=== PATIENT | male | born 1965 | race Caucasian/White ===

== ENCOUNTER 2019-04-14 11:20 | Outpatient (CLI) | payer BC ==
--- NOTE | 2019-04-14 11:39 | RAD ---
Cervical spine 3 views: 04/14/2019 COMPARISON: None HISTORY: History of "neck fracture", pain FINDINGS: Partially visualized midline sternotomy wires are present. Metallic foreign bodies overlie the region of the mastoid air cells, location uncertain without frontal imaging. No significant anterolisthesis or retrolisthesis. At C5-6 and C6-7 there is disc space narrowing with degenerative endplate change and anterior osteoph yte formation. No prevertebral soft tissue swelling. Neutral, extension, and flexion imaging demonstrates no anterolisthesis or retrolisthesis. The patien t's history includes "neck fracture". No discrete fracture seen on this examination. Correlation with CT examination is thus advised. IMPRESSION: 3 views of the cervical spine as above.
== END 2019-04-14 11:21 | disposition home or self-care (01) ==
LOC: TBSIIMAG 11:20
PROVIDERS: ATTEND Neurological Surgery
DX: S12.9XXA Fracture of neck, unspecified, initial encounter (principal)
CPT/HCPCS: 72040

== ENCOUNTER 2019-07-16 08:41 | Outpatient (CLI) | payer BC ==
--- NOTE | 2019-07-16 09:19 | CT ---
CT of thecervical spine: 07/16/2019 COMPARISON:None available HISTORY:Cervical spondylosis TECHNIQUE: Serial axial CT imaging at2 mm intervals from theskull base through lung apices without co ntrast. Coronal and sagittal reformatted imaging obtained. Findings:There is degenerative change at the atlantoaxial interspace. The craniocervical junction and the cervicothoracic junction appear intact. Evaluation for central canal and/or neural foraminal stenosis is limited on routine CT. There is a pr ominent area of eccentric hypodensity with associated calcification involving the distal CCA and proximal ICA on the left. CT angiogram of the neck advised for further assessment. C2-3: No osseous cause of significant central canal or neural foraminal stenosis. C3-4: Mild right-sided uncovertebral osteophyte formation. Mild anterior osteophyte. Mild right neura l foraminal stenosis. No osseous cause of significant central canal or left neural foraminal stenosis. C4-5: No osseous cause of significant central canal or neural foraminal stenosis. C5-6: Probable mild disc bulge. Mild bilateral facet hypertrophy with mild right uncovertebral osteop hyte formation. No osseous cause of significant central canal or neural foraminal stenosis. C6-7: There is disc space narrowing and mild degenerative endplate change with mild anterior osteophy te formation. Mild bilateral uncovertebral osteophyte, left greater than right. There is mild left neural foraminal stenosis. No central canal or right neural foraminal stenosis. C7-T1: No osseous cause of significant central canal or neural foraminal stenosis. There is a focal area of irregular groundglass opacity within the right lung apex measuring 1.9 cm in craniocaudal dimension. No evidence for acute fracture or dislocation. Impression: 1. Eccentric hypodensity within the distal CCA and proximal ICA on the left for which CT angiogram of the neck is suggested. 2. Cervical spine degenerative change as detailed above. 3. Focal area of abnormal groundglass opacity within the right lung apex. CT examination of the chest is advised. CODE T
== END 2019-07-16 08:42 | disposition home or self-care (01) ==
LOC: TBSIIMAG 08:41
PROVIDERS: ATTEND Neurological Surgery
DX: M47.812 Spondylosis without myelopathy or radiculopathy, cervical region (principal); R91.8 Other nonspecific abnormal finding of lung field; R93.89 Abnormal findings on diagnostic imaging of other specified body structures
CPT/HCPCS: 72125

== ENCOUNTER 2019-08-14 10:01 | Outpatient (CLI) | payer BC ==
--- NOTE | 2019-08-14 12:10 | RAD ---
XRAY SINUSES WALKER VIEW ONLY: HISTORY: Eye drainage. FINDINGS/IMPRESSION: No radiopaque foreign body is seen in either orbit. POS: [facility]
--- NOTE | 2019-08-14 13:30 | MRI ---
MRI cervical spine noncontrast: DATE: 08/14/2019 HISTORY: 54-year-old male with cervical spondylosis and cervical myelopathy M 47.12 COMPARISON: None TECHNIQUE: This was ordered with and without IV contrast. However, no IV access could be obtained, and therefore the study was performed without contrast. FINDINGS: Vertebral body heights are maintained. Disc spaces are maintained. Multilevel predominantly mild face t DJD bilaterally. Broad-based, and focal, and irregular disc-osteophyte complexes protruding into the spinal canal anteriorly. Mild ligamentum flavum thickening minimally indents the dorsal surface o f the spinal canal. No vane cord compression at any level. Bone marrow signal is normal. C1-2: Normal. C2-3: No central or significant neural foraminal stenosis. C3-4: There is patchy T2-hyperintense intramedullary signal abnormality which at its most concentrate d location involves the majority of the volume of the spinal cord, especially the central law matter, with sparing of peripheral thin circumferential rim of cord white matter. There is a small pa tchy region of right posterior probable white matter involvement at the inferior aspect of this lesion. Mild to moderate central spinal canal stenosis. Severe right neural foraminal stenosis. Mild left neural foraminal stenosis. C4-5: Moderate to severe central spinal canal stenosis. Small to moderate-sized bilateral uncinate pr ocess osteophytes. Moderate bilateral neural foraminal stenosis. C5-6:Moderate to severe central spinal canal stenosis. Moderate size bilateral uncinate process osteo phytes. Moderate to severe right neural foraminal stenosis. Mild to moderate left neural foraminal stenosis. C6-7: Moderate sized bilateral uncinate process osteophytes. Moderate bilateral neural foraminal sten osis. Moderate left neural foraminal stenosis. Moderate-severe central spinal canal stenosis. C7-T1: Normal IMPRESSION: 1. Intramedullary significant patchy signal abnormality involving the majority of the cross-sectional area of central law matter at the C3-4 level, without cord expansion. Uncertain whether this represents a nonspecific myelitis or myelomalacia. IV access could not be obtained, and therefore no IV contrast was given. 2. Predominantly mild cervical spondylosis, with multilevel moderate central spinal canal stenosis, a nd high-grade neural foraminal stenosis.
== END 2019-08-14 10:02 | disposition home or self-care (01) ==
LOC: BICMRI 10:01
PROVIDERS: ATTEND Neurological Surgery
DX: M47.12 Other spondylosis with myelopathy, cervical region (principal); M48.02 Spinal stenosis, cervical region
CPT/HCPCS: 70210; 72141; 72156

== ENCOUNTER 2019-08-21 06:02 | Day surgery (SDC) | payer BC ==
[2019-08-20 11:24] VITALS: BMI 27.1
[2019-08-21] MEDS ORDERED: Famotidine/PF 20 mg/2ml Vial ONE (06:25)
[2019-08-21] MEDS ORDERED: Fentanyl 100 MCG/2 ML VIAL ONE ×4 (06:25→09:40)
[2019-08-21] MEDS ORDERED: Ondansetron PF 4 MG/2 ML Vial ONE ×2 (09:09→12:27)
--- NOTE | 2019-08-21 09:28 | OP ---
DATE OF PROCEDURE: 08/21/2019 [employer]: Rodrigo Briseno PA-C INDICATION: Pain and weakness. DIAGNOSIS: Cervical radiculopathy with pain and weakness. ANESTHESIA: General. PROCEDURE PERFORMED: Anterior cervical diskectomy and fusion, C4-C6. DESCRIPTION OF PROCEDURE: The patient was brought into the operating room and placed under general anesthesia. He was placed on table in a supine position. A transverse incision was planned over the lateral aspect of the neck on the right. After prepping and draping and after an appropriate preoperative pause, the incision was created. The underlying platysma muscle was identified and incised. A blunt tissue plane anterior to the sternocleidomastoid muscle was used to gain access to the prevertebral space. Self-retaining retractors were placed in the wound for optimal exposure. After confirmed the appropriate level with C-arm fluoroscopy, an annulotomy was performed in the C5-C6 disk space. All disk material as well as anterior and posterior osteophytes were removed. After completing the decompression, an 8-mm lordotic PEEK cage packed with allograft and autograft material was placed within the interbody space. We then redirected our attention to the level above at C4-C5, where again an annulotomy was performed. All disk material as well as anterior and posterior osteophytes were removed. After completing the decompression, a 7-mm lordotic PEEK cage packed with allograft and autograft material was placed in the interbody space. An anterior cervical plate was then fashioned to the front of spine and secured with 6 screws. Midline and lateral structures were inspected and found to be free from significant trauma. The wound was irrigated. Hemostasis was maintained throughout. The wound was then closed in anatomic layers and a pressure dressing was applied. There were no known procedural complications. Job ID: [id number]
[2019-08-21] MEDS ORDERED: Rocuronium Bromide 10 MG/ML (10ML VIAL) ONE (12:27)
[2019-08-21] MEDS ORDERED: Metoclopramide HCl 10 MG/2 ML VIAL ONE (12:27)
[2019-08-21] MEDS ORDERED: Dexamethasone 20 MG/5 ML VIAL ONE (12:27)
[2019-08-21] MEDS ORDERED: Ketorolac Tromethamine 30 MG/ML VIAL ONE (12:27)
[2019-08-21] MEDS ORDERED: Lidocaine 1% PF 5 ML VIAL ONE (12:27)
[2019-08-21] MEDS ORDERED: PROPOFOL 200 MG/20 ML VIAL ONE (12:27)
[2019-08-21] MEDS ORDERED: EPHEDRINE 25 MG/5 ML SYRINGE ONE (12:27)
[2019-08-21] MEDS ORDERED: PHENYLEPHRINE-NS 100 MCG/ML 10 ML SYRINGE ONE (12:27)
[2019-08-21] MEDS ORDERED: Glycopyrrolate 0.2 MG/ML 5 ML SYRINGE ONE (12:27)
== END 2019-08-21 12:07 | disposition home or self-care (01) ==
LOC: SDC 06:02
PROVIDERS: ATTEND Neurological Surgery
PROC: 0RT30ZZ Resection of Cervical Vertebral Disc, Open Approach (ICD-10-PCS; principal; 2019-08-21)
PROC: 0RG20A0 Fusion of 2 or more Cervical Vertebral Joints with Interbody Fusion Device, Anterior Approach, Anterior Column, Open Approach (ICD-10-PCS; principal; 2019-08-21)
DX: M48.02 Spinal stenosis, cervical region (principal); M54.12 Radiculopathy, cervical region; M25.78 Osteophyte, vertebrae
CPT/HCPCS: 76000; C1713; C1776; J0690; J1100; J1885; J2001; J2405; J2704; J2765; J3010; S0028

== ENCOUNTER 2020-02-02 14:35 | Outpatient (CLI) | payer BC ==
--- NOTE | 2020-02-02 15:36 | CT ---
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 These were present previously. No fracture lucency is present. There is partial opacification of some of the lori ateral mastoid air cells consistent with mild bilateral mastoid effusions. The bilateral middle ear cavities and mastoid antra are grossly clear. There are ACDF anterior metallic plate and screws at C4, C5, and C6, new since 07/16/2019. Tiny metallic markers for interbody cages at the C4-5 and C5-6 disc spaces. No osseous bridges betwee n the irregular endplates, across the disc spaces. Vertebral body heights are maintained. Mild bilateral facet DJD at upper levels. No high-grade facet DJD. C1-2: No central spinal canal stenosis. No high-grade DJD at bilateral atlantoaxial joints. C2-3: No central or neural foraminal stenosis. C3-4: Small to moderate-sized bilateral uncinate process osteophytes encroach upon neural foramina. M oderate-severe right neural foraminal stenosis. No significant left neural foraminal stenosis. Central and bilateral paracentral shallow disc protrusion. Mild central spinal canal stenosis. C4-5: Small to moderate bilateral uncinate process osteophytes. Mild bilateral neural foraminal steno sis. Mild to moderate central spinal canal stenosis. C5-6: Moderate sized bilateral uncinate process osteophytes. Mild to moderate bilateral neural forami nal stenosis. Moderate to severe central spinal canal stenosis. C6-7: Moderate sized bilateral uncinate process osteophytes cause moderate bilateral neural foraminal stenosis. Moderate-severe central spinal canal stenosis. C7-T1: Normal . IMPRESSION: 1) predominantly mild cervical spondylosis with multilevel central spinal canal stenosis and neural f oraminal stenosis. 2) status post anterior cervical discectomy and fusion at C4-C5-C6.
== END 2020-02-02 14:36 | disposition home or self-care (01) ==
LOC: BICCT 14:35
PROVIDERS: ATTEND Neurological Surgery
DX: M47.812 Spondylosis without myelopathy or radiculopathy, cervical region; M48.02 Spinal stenosis, cervical region; Z98.1 Arthrodesis status; Z98.890 Other specified postprocedural states
CPT/HCPCS: 72125

== ENCOUNTER 2020-06-24 08:21 | Outpatient (CLI) | payer BC ==
--- NOTE | 2020-06-24 09:25 | RAD ---
Cervical spine 3 views 06/24/2020 COMPARISON: 04/14/2019 HISTORY: Spondylosis with myelopathy, prior surgery, right upper extremity radiculopathy FINDINGS: Stable metallic densities are seen lateral to the left mastoid air cells. Anterior discectomy and fusion hardware noted at the C4-5/C5-6 level. There is disc space narrowing a nterior osteophyte formation at C3-4 and C6-7. No prevertebral soft tissue swelling. No anterolisthesis or retrolisthesis. The open-mouth odontoid v iew is unremarkable. Partially imaged midline sternotomy wire noted. IMPRESSION: Postoperative and degenerative changes of the cervical spine as detailed above.
--- NOTE | 2020-06-24 09:57 | MRI ---
EXAM: MRI cervical spine without contrast HISTORY: Spondylosis. COMPARISON: 08/14/2019 FINDINGS: Interval changes of ACDF from C4 through C6. Regional marrow signal unaffected by metallic susceptibi lity artifact appears unremarkable. The visualized posterior fossa and cervical medullary junction are stable in appearance. Cord signal abnormality at C3-4 persists, without significant change with r espect to prior. C2-C3: Bilateral facet arthritis with moderate right foraminal narrowing. No central canal or left foraminal narrowing apparent C3-C4: Bilateral uncinate process hypertrophy, broad-based disc osteophyte complex and bilateral facet arthr itis. Moderate right and mild left foraminal narrowing. Mild effacement of the ventral subarachnoid space without cord contact or deformity. C4-C5: No significant central canal or foraminal narrowing apparent. C5-C6: No significant central canal or foraminal narrowing apparent. C6-C7: Broad-based disc osteophyte complex and bilateral uncinate process hypertrophy. Effacement of the juwan tral subarachnoid space without cord contact or deformity. Severe left and mild right foraminal narrowing. C7-T1: No significant central canal or foraminal narrowing apparent. IMPRESSION: Degenerative change and interval postoperative change as described. Stable cord signal abnormality.
== END 2020-06-24 08:22 | disposition home or self-care (01) ==
LOC: TBSIIMAG 08:21
PROVIDERS: ATTEND Neurological Surgery
DX: M47.12 Other spondylosis with myelopathy, cervical region (principal); R93.7 Abnormal findings on diagnostic imaging of other parts of musculoskeletal system; Z98.1 Arthrodesis status
CPT/HCPCS: 72040; 72141

== ENCOUNTER 2021-03-07 17:04 | Outpatient (CLI) | payer BC ==
[2021-03-08 00:29] LABS: SARS-CoV-2 PCR by NAA Not Detected (NotDetected)
== END 2021-03-07 17:05 | disposition home or self-care (01) ==
LOC: LABBT 17:04
PROVIDERS: ATTEND Specialist
DX: Z01.812 Encounter for preprocedural laboratory examination (principal); G56.41 Causalgia of right upper limb; G89.4 Chronic pain syndrome; Z20.822 Contact with and (suspected) exposure to COVID-19
CPT/HCPCS: U0003; U0005

== ENCOUNTER 2021-03-09 10:01 | Day surgery (SDC) | payer BC ==
[2021-03-08 11:06] VITALS: BMI 29.8
[2021-03-09] MEDS ORDERED: ceFAZolin 2 GM/DEX 5% 100 ML BAG ONE (10:51)
[2021-03-09] MEDS ORDERED: Sodium Chloride 0.9% 100 ML ONE (10:52)
[2021-03-09] MEDS ORDERED: CEFAZOLIN 1 GM VIAL ONE (10:52)
[2021-03-09] MEDS ORDERED: Bupivacaine PF 0.5% 30 ML VIAL ONE (11:22)
[2021-03-09] MEDS ORDERED: Sodium Chloride 0.9% 20 ML ONE (11:22)
[2021-03-09] MEDS ORDERED: Lidocaine 1% w/Epinephrine 1:100K 20 ML VIAL ONE (11:22)
[2021-03-09] MEDS ORDERED: Midazolam HCl 2 mg/2 ml Vial ONE (11:29)
[2021-03-09] MEDS ORDERED: Ketamine 50 MG/ML (10ML VIAL) ONE (11:29)
[2021-03-09] MEDS ORDERED: Propofol 500 MG/50 ML VIAL ONE ×3 (11:29→13:53)
[2021-03-09] MEDS ORDERED: Fentanyl 100 MCG/2 ML VIAL ONE (11:29)
[2021-03-09] MEDS ORDERED: ePHEDrine 50 MG/ML VIAL ONE (12:00)
[2021-03-09] MEDS ORDERED: HYDROcodone/Acetaminophen 5/325 mg Tablet ONE (14:50)
== END 2021-03-09 15:43 | disposition home or self-care (01) ==
LOC: SDC 10:01
PROVIDERS: ATTEND Specialist
PROC: 00HU3MZ Insertion of Neurostimulator Lead into Spinal Canal, Percutaneous Approach (ICD-10-PCS; principal; 2021-03-09)
PROC: 0JH70DZ Insertion of Multiple Array Stimulator Generator into Back Subcutaneous Tissue and Fascia, Open Approach (ICD-10-PCS; principal; 2021-03-09)
DX: G89.4 Chronic pain syndrome (principal); G56.41 Causalgia of right upper limb; Z79.899 Other long term (current) drug therapy; Z98.1 Arthrodesis status
CPT/HCPCS: 72020; 76000; C1778; C1787; C1820; J0690; J2250; J2704; J3010; J3490; L8689; S0020

== ENCOUNTER 2023-01-04 10:30 | Outpatient (CLI) | payer MEDICARE | END 2023-01-04 10:31 | disposition home or self-care (01) | LOC: RAD 10:30 | PROVIDERS: ATTEND Family Medicine | DX: G56.41 Causalgia of right upper limb (principal); G89.4 Chronic pain syndrome; M25.78 Osteophyte, vertebrae; Z98.1 Arthrodesis status | CPT/HCPCS: 72040 ==

== ENCOUNTER 2023-05-06 08:54 | Outpatient (CLI) | payer MEDICARE ==
[2023-05-06] MEDS ORDERED: Regadenoson 0.4 MG/5 ML SYRINGE ONE (10:22)
[2023-05-06] MEDS ORDERED: Lidocaine 1% PF 5 ML VIAL ONE (10:42)
[2023-05-06] MEDS ORDERED: Sodium Bicarbonate 2.5 MEQ/5 ML VIAL ONE (10:42)
[2023-05-06 11:49] LABS: ALT (SGPT) 23 U/L (8-55); AST (SGOT) 23 U/L (5-34); Albumin 4.4 g/dL (3.5-5.0); Alkaline Phosphatase 94 U/L (40-110); Anion Gap 12 mmol/L (10-20); BUN (Urea Nitrogen) 15 mg/dL (8.4-25.7); Bilirubin, Total 0.8 mg/dL (0.2-1.2); Calc. Creatinine Clearance 0 mL/min (70-130); Calcium 9.3 mg/dL (7.8-10.44); Carbon Dioxide 25 mmol/L (22-29); Chloride 106 mmol/L (98-107); Cholesterol 190 mg/dl (< 200 Desired); Estimated GFR 79; Glucose 105 mg/dL (70-105); HDL Cholesterol 47 mg/dL (>60 Neg Risk); LDL Cholesterol, Calculated 121 mg/dL; Potassium 5.3 mmol/L (3.5-5.1); Protein, Total 7.4 g/dL (6.0-8.3); Sodium 138 mmol/L (136-145); Triglycerides 108 mg/dL (Less than 150)
== END 2023-05-06 08:55 | disposition home or self-care (01) ==
LOC: NM 08:54
PROVIDERS: ATTEND Internal Medicine Cardiovascular Disease
DX: I25.10 Atherosclerotic heart disease of native coronary artery without angina pectoris (principal)
CPT/HCPCS: 78452; 80053; 80061; 93017; A9502; J2785